=== PATIENT | female | born 1945 | race African-American/Black ===

== ENCOUNTER 2018-11-28 22:47 | Emergency (ER) | payer MEDICARE ==
--- NOTE | 2018-11-29 00:15 | ER Document Report ---
ED Medical Screen (RME) - General Chief Complaint: Flu Symptoms Stated Complaint: WEAKNESS,ACHES,HEADACHE Time Seen by Provider: 11/29/18 00:10 Mode of Arrival: Ambulatory Information source: Patient Notes: Patient presents complaining of generalized body aches cough and weakness for the past week. Patient denies any chest pain. Patient complains of lateral side soreness. Patient denies any nausea vomiting or urinary symptoms. Patient denies any significant medical history I have greeted and performed a rapid initial assessment of this patient. A comprehensive ED assessment and evaluation of the patient, analysis of test results and completion of the medical decision making process will be conducted by additional ED providers. TRAVEL OUTSIDE OF THE [place] IN LAST 30 DAYS: No - Related Data Allergies/Adverse Reactions: No Known Drug Allergies Allergy (Verified 11/28/18 22:50) Physical Exam - Vital signs Vitals: Temp Pulse Resp BP Pulse Ox 98.6 F 106 H 16 147/77 H 96 11/28/18 22:54 11/28/18 22:54 11/28/18 22:54 11/28/18 22:54 11/28/18 22:54 - Respiratory Respiratory status: No respiratory distress Breath sounds: Nonproductive cough Chest palpation: Normal Course - Vital Signs Vital signs: Temp Pulse Resp BP Pulse Ox 98.6 F 106 H 16 147/77 H 96 11/28/18 22:54 11/28/18 22:54 11/28/18 22:54 11/28/18 22:54 11/28/18 22:54
[2018-11-29 01:11] LABS: ABSOLUTE BASOPHILS # (AUTO) 0.1 10^3/uL (0.0-0.2); ABSOLUTE LYMPHOCYTES (AUTO) 0.6 10^3/uL (0.5-4.7); ABSOLUTE NEUT (AUTO) 8.7 10^3/uL (1.7-8.2); BASOPHILS % (AUTO) 0.6 % (0-2); HEMOGLOBIN 12.7 g/dL (12.0-15.5); LYMPHOCYTES % (AUTO) 5.9 % (13-45); MEAN CORPUSCULAR HEMOGLOBIN 32.3 pg (27.0-33.4); MEAN CORPUSCULAR HGB CONC 34.4 g/dL (32.0-36.0); MEAN CORPUSCULAR VOLUME 94 fl (80-97); MONOCYTES % (AUTO) 9.4 % (3-13); PLATELET COUNT 320 10^3/uL (150-450); RED BLOOD COUNT 3.93 10^6/uL (3.72-5.28); RED CELL DISTRIBUTION WIDTH 12.9 % (11.5-14.0); SEGMENTED NEUTROPHILS % (AUTO) 84.1 % (42-78); TOTAL CELLS COUNTED % (AUTO) 100 %; WHITE BLOOD COUNT 10.4 10^3/uL (4.0-10.5)
[2018-11-29 01:22] LABS: ALANINE AMINOTRANSFERASE 15 U/L (9-52); ALBUMIN 4.3 g/dL (3.5-5.0); ALKALINE PHOSPHATASE 86 U/L (38-126); ANION GAP 9 (5-19); ASPARTATE AMINO TRANSFERASE 20 U/L (14-36); BILIRUBIN,DIRECT 0.2 mg/dL (0.0-0.4); BILIRUBIN,TOTAL 1.6 mg/dL (0.2-1.3); BLOOD UREA NITROGEN 11 mg/dL (7-20); CALCIUM 9.6 mg/dL (8.4-10.2); CARBON DIOXIDE 31 mmol/L (22-30); CHLORIDE 99 mmol/L (98-107); GLUCOSE 97 mg/dL (75-110); POTASSIUM 4.3 mmol/L (3.6-5.0); TOTAL PROTEIN 8.1 g/dL (6.3-8.2)
--- NOTE | 2018-11-29 01:27 | RADIOLOGY REPORT (SQ) ---
EXAM DESCRIPTION: XR CHEST 2 VIEWS COMPLETED DATE/TME: 11/29/2018 00:11 CLINICAL HISTORY: 73 years, Female, cough COMPARISON: None. NUMBER OF VIEWS: Two TECHNIQUE: Two views of the chest LIMITATIONS: None. FINDINGS: Lungs demonstrate chronic interstitial opacities with masslike consolidations involving the right midlung which measures approximately 1.6 cm. There is also a masslike consolidation involving the left lung base which measures 2.8 cm. There is no pneumothorax or pleural effusion. The heart is normal in size. The bones are unremarkable. IMPRESSION: Masslike consolidations involving the right midlung and left lung base. Recommend further evaluation with a CT chest. copyright 2010 [employer]- All Rights Reserved
[2018-11-29 01:45] LABS: APPEARANCE,URINE CLEAR; BILIRUBIN,URINE NEGATIVE (NEGATIVE); COLOR,URINE YELLOW; GLUCOSE, URINE NEGATIVE (NEGATIVE); KETONES,URINE 80 mg/dL (NEGATIVE); LEUKOCYTE ESTERASE,URINE NEGATIVE (NEGATIVE); NITRITE,URINE NEGATIVE (NEGATIVE); PROTEIN,URINE NEGATIVE (NEGATIVE); URINE SPECIFIC GRAVITY 1.017; UROBILINOGEN,URINE NEGATIVE mg/dL (<2.0)
--- NOTE | 2018-11-29 03:44 | RADIOLOGY REPORT (SQ) ---
EXAM DESCRIPTION: CT ABDOMEN PELVIS WITHOUT IV CONTRAST, CT CHEST WITHOUT IV CONTRAST COMPLETED DATE/TME: 11/29/2018 02:09 (accession [id number]), 11/29/2018 02:07 (accession [id number]) CLINICAL HISTORY: 73 years, Female, L side pain, hematuria COMPARISON: None. TECHNIQUE: Axial CT images of the chest, abdomen and pelvis were obtained without contrast. Sagittal and coronal reformats were performed. DLP 364 Images stored on PACS. All CT scanners at this facility use dose modulation, iterative reconstruction, and/or weight based dosing when appropriate to reduce radiation dose to as low as reasonably achievable (ALARA). [facility]: Dose Right [facility]: CareDose [facility]: Dose Right [facility]: Teradose 4D [facility]: Apmetrix LIMITATIONS: None. FINDINGS: --Chest-- Thoracic aorta: Unremarkable. Heart: Unremarkable. Mediastinum: No pathologic sized middle mediastinal lymphadenopathy. Tracheobronchial tree: Unremarkable. Lungs: Lobar consolidation: Patchy consolidations involving the right upper lobe, right lower lobe, and left lower lobe. Consolidation involving the lingula likely represents atelectasis. Pleural effusion: Negative. Pneumothorax: Negative. Other: Negative. Bones: Unremarkable. --Abdomen-- Solid abdominal viscera: Liver: Unremarkable. Gallbladder: Unremarkable. Pancreas: Unremarkable. Spleen: Unremarkable. Adrenal glands: Unremarkable. Right kidney: No urolithiasis or hydronephrosis. Left kidney: No urolithiasis or hydronephrosis. Urinary bladder: Incompletely distended Abdominal aorta: Unremarkable. Peritoneal: Free fluid: Trace Free air: None. Other: No pathologic sized lymph nodes in the upper abdomen. Bowel: Stomach: Unremarkable. Small bowel: Unremarkable. Appendix: Unremarkable. Colon: Unremarkable. Rectum: Unremarkable. Bones: Unremarkable. IMPRESSION: Multifocal pneumonia. No evidence of urolithiasis or hydronephrosis. TECHNICAL DOCUMENTATION: Quality ID # 436: Final reports with documentation of one or more dose reduction techniques (e.g., Automated exposure control, adjustment of the mA and/or kV according to patient size, use of iterative reconstruction technique) copyright 2010 [employer]- All Rights Reserved
--- NOTE | 2018-11-29 03:44 | RADIOLOGY REPORT (SQ) ---
EXAM DESCRIPTION: CT ABDOMEN PELVIS WITHOUT IV CONTRAST, CT CHEST WITHOUT IV CONTRAST COMPLETED DATE/TME: 11/29/2018 02:09 (accession [id number]), 11/29/2018 02:07 (accession [id number]) CLINICAL HISTORY: 73 years, Female, L side pain, hematuria COMPARISON: None. TECHNIQUE: Axial CT images of the chest, abdomen and pelvis were obtained without contrast. Sagittal and coronal reformats were performed. DLP 364 Images stored on PACS. All CT scanners at this facility use dose modulation, iterative reconstruction, and/or weight based dosing when appropriate to reduce radiation dose to as low as reasonably achievable (ALARA). [facility]: Dose Right [facility]: CareDose [facility]: Dose Right [facility]: Teradose 4D [facility]: IPDIA LIMITATIONS: None. FINDINGS: --Chest-- Thoracic aorta: Unremarkable. Heart: Unremarkable. Mediastinum: No pathologic sized middle mediastinal lymphadenopathy. Tracheobronchial tree: Unremarkable. Lungs: Lobar consolidation: Patchy consolidations involving the right upper lobe, right lower lobe, and left lower lobe. Consolidation involving the lingula likely represents atelectasis. Pleural effusion: Negative. Pneumothorax: Negative. Other: Negative. Bones: Unremarkable. --Abdomen-- Solid abdominal viscera: Liver: Unremarkable. Gallbladder: Unremarkable. Pancreas: Unremarkable. Spleen: Unremarkable. Adrenal glands: Unremarkable. Right kidney: No urolithiasis or hydronephrosis. Left kidney: No urolithiasis or hydronephrosis. Urinary bladder: Incompletely distended Abdominal aorta: Unremarkable. Peritoneal: Free fluid: Trace Free air: None. Other: No pathologic sized lymph nodes in the upper abdomen. Bowel: Stomach: Unremarkable. Small bowel: Unremarkable. Appendix: Unremarkable. Colon: Unremarkable. Rectum: Unremarkable. Bones: Unremarkable. IMPRESSION: Multifocal pneumonia. No evidence of urolithiasis or hydronephrosis. TECHNICAL DOCUMENTATION: Quality ID # 436: Final reports with documentation of one or more dose reduction techniques (e.g., Automated exposure control, adjustment of the mA and/or kV according to patient size, use of iterative reconstruction technique) copyright 2010 [employer]- All Rights Reserved
--- NOTE | 2018-11-29 05:02 | ER Document Report ---
ED General - General Chief Complaint: Flu Symptoms Stated Complaint: WEAKNESS,ACHES,HEADACHE Time Seen by Provider: 11/29/18 00:10 Primary Care Provider: DIONNA RODRIGUES MD [ACTIVE STAFF] - Follow up tomorrow ANNABEL GUIDRY MD [ACTIVE STAFF] - Follow up tomorrow DEL FRAGA MD [ACTIVE STAFF] - Follow up tomorrow Mode of Arrival: Ambulatory Notes: Patient is a 73-year-old female who presents the emergency department with a chief complaint of flulike symptoms. She has had a cough for the past week. Patient and daughter who is at bedside denies any past medical history other th an pneumonia. Apparently she was started on one medication, which might have been azithromycin, which did not help her. She was then subsequently hospitalized. Daughter who is at bedside and other children over the phone have verified that the patient did better when she was on Levaquin. She is new to the area and has not seen a primary care provider in regards to this issue. TRAVEL OUTSIDE OF THE [place] IN LAST 30 DAYS: No - Related Data Allergies/Adverse Reactions: No Known Drug Allergies Allergy (Verified 11/28/18 22:50) Past Medical History - General Information source: Patient - Social History Smoking Status: Never Smoker Family History: Reviewed & Not Pertinent Review of Systems - Review of Systems Notes: REVIEW OF SYSTEMS: CONSTITUTIONAL : See HPI EENT: Denies eye, ear, throat, or mouth pain, discharge, or symptoms. Denies nasal or sinus congestion. CARDIOVASCULAR: Denies chest pain. RESPIRATORY: See HPI GASTROINTESTINAL: Denies nausea, vomiting, and diarrhea. Denies abdominal pain. Denies constipation. GENITOURINARY: Denies difficulty urinating, burning, blood in urine, urgency or frequency. MUSCULOSKELETAL: Denies neck and back pain. Denies joint pain or swelling. SKIN: Denies rash, itchiness, or lesions HEMATOLOGIC : Denies easy bruising or bleeding. LYMPHATIC: Denies swollen, painful, enlarged glands. NEUROLOGICAL: Denies no numbness or tingling denies weakness. Denies headache. Denies altered mental status. Denies alteration in speech. PSYCHIATRIC: Denies stress, anxiety, alteration in sleep patterns, or depression. All other systems reviewed and negative. Physical Exam - Vital signs Vitals: Temp Pulse Resp BP Pulse Ox 98.6 F 106 H 16 147/77 H 96 11/28/18 22:54 11/28/18 22:54 11/28/18 22:54 11/28/18 22:54 11/28/18 22:54 - Notes Notes: PHYSICAL EXAMINATION: GENERAL: Appears well, younger than stated age, healthy, well-nourished, no acute distress. HEAD: Normocephalic, atraumatic. EYES: PERRL, conjunctiva normal, all extraocular movements intact, sclera nonicteric ENT: Moist mucous membranes. NECK: Supple, no noticeable swelling, redness, rash. Normal range of motion. LUNGS: Equal breath sounds bilaterally and diminished to auscultation in bilateral bases. No wheezes rales or rhonchi. CARDIOVASCULAR: S1-S2, regular rate, regular rhythm. Radial pulses 2+, normal. ABDOMEN: Normoactive bowel sounds. Soft, nontender, no guarding, no rebound tenderness, and no masses palpated. EXTREMITIES: Normal strength and range of motion, no pitting or edema. No cyanosis. NEUROLOGICAL: Moves all extremities upon command. Strength 5/5 in all extremities. PSYCH: Normal mood, normal affect. SKIN: Warm, dry. No rash, lesions, ulcerations noted. Normal skin turgor. Course - Re-evaluation Re-evalutation: 11/29/18 05:[address] shows multifocal pneumonia. Her vital signs have been stable. According to the curb 65 with a score of 1 for her age, the patient is at low risk for worsening pneumonia. I had a lengthy conversation with the patient, her daughter at bedside, and her other children over the phone and discussed that the patient only scored a 1 on the curb 65 score. The patient's family was asking if there was any way that she can be admitted under observation overnight. I discussed all lab values and show that the patient did not meet any admission or observation criteria. The patient will be started on Levaquin. Follow-up precautions were given. Verbal discharge instructions were given to the patient and children. They verbalized understanding. They are stable for discharge. I have referred them to Johana Oseguera, and Stevie, as she is new to the area and needs to establish a primary care provider. - Vital Signs Vital signs: Temp Pulse Resp BP Pulse Ox 98.9 F 82 16 113/73 95 11/29/18 05:15 11/29/18 05:15 11/29/18 05:15 11/29/18 05:15 11/29/18 05:15 - Laboratory Result Diagrams: 11/29/18 00:46 11/29/18 00:46 Laboratory results interpreted by me: 11/29/18 11/29/18 11/29/18 00:46 00:46 00:46 Seg Neutrophils % 84.1 H Lymphocytes % 5.9 L Absolute Neutrophils 8.7 H Carbon Dioxide 31 H Total Bilirubin 1.6 H Urine Ketones 80 H Urine Blood MODERATE H Urine Ascorbic Acid 40 H - EKG Interpretation by Me Additional EKG results interpreted by me: 11/29/18 Sinus rhythm. Rate 95. OR 160; QRS 94; QT 348; QTc 438. No ST elevations or depressions noted. Discharge - Discharge Clinical Impression: Pneumonia Qualifiers: Pneumonia type: due to unspecified organism Laterality: unspecified laterality Lung location: unspecified part of lung Qualified Code(s): J18.9 - Pneumonia, unspecified organism Condition: Stable Disposition: HOME, SELF-CARE Additional Instructions: You have been diagnosed with a pneumonia. It is very important that you take all of your antibiotics until they are gone even if you are feeling better. Please return to the emergency department immediately if you began having worsening shortness of breath, become confused, have worsening pain, pass out, have persistent vomiting that prevents you from being able to drink fluids for more than 12 hours, or have any other symptoms that are worrisome to you. Please follow-up with a primary care doctor below in the next 1-2 days. Prescriptions: Levofloxacin [Levaquin 750 mg Tablet] 750 mg PO DAILY #5 tablet Referrals: DIONNA RODRIGUES MD [ACTIVE STAFF] - Follow up tomorrow DEL FRAGA MD [ACTIVE STAFF] - Follow up tomorrow ANNABEL GUIDRY MD [ACTIVE STAFF] - Follow up tomorrow
[2018-11-29] MEDS ORDERED: ACETAMINOPHEN 325 MG TABLET PO ONE (05:06)
[2018-11-29] MEDS ORDERED: LEVOFLOXACIN 750 MG TABLET PO ONE (05:06)
[2018-11-29 05:17] VITALS: BP 113/73
--- NOTE | 2018-11-29 08:27 | EKG REPORT ---
SEVERITY:- ABNORMAL ECG - SINUS RHYTHM PROBABLE LEFT ATRIAL ABNORMALITY PROBABLE INFERIOR INFARCT, OLD : Confirmed by: Saeed Reese MD 29-Nov-2018 08:26:38
== END 2018-11-29 06:02 | disposition home or self-care (01) ==
LOC: ER 22:47
DX: J18.9 Pneumonia, unspecified organism (principal); R53.1 Weakness; R51 Headache; R05 Cough
CPT/HCPCS: 93005; 99284; 36415; 83735; 85025; 80053; 81001; 84484; 71046; 71250; 74176; 93010; A9270 ×2

== ENCOUNTER → 2018-12-18 | Outpatient (CLI) | payer MEDICARE ==
--- NOTE | 2018-12-18 18:33 | RADIOLOGY REPORT (SQ) ---
EXAM DESCRIPTION: CHEST 2 VIEWS COMPLETED DATE/TIME: 12/18/2018 5:57 pm REASON FOR STUDY: J18.9 PNEUMONIA, UNSPECIFIED ORGANISM COMPARISON: 11/29/2018 EXAM PARAMETERS: NUMBER OF VIEWS: two views TECHNIQUE: Digital Frontal and Lateral radiographic views of the chest acquired. RADIATION DOSE: NA LIMITATIONS: none FINDINGS: LUNGS AND PLEURA: No opacities, masses or pneumothorax. No pleural effusion. MEDIASTINUM AND HILAR STRUCTURES: No masses or contour abnormalities. HEART AND VASCULAR STRUCTURES: Heart normal size. No evidence for failure. BONES: No acute findings. HARDWARE: None in the chest. OTHER: No other significant finding. IMPRESSION: NO ACUTE RADIOGRAPHIC FINDING IN THE CHEST. TECHNICAL DOCUMENTATION: JOB ID: [id number] [employer]- All Rights Reserved Reading location - IP/workstation name: [email or web address]
== END ==
LOC: RAD 17:11
PROVIDERS: ATTEND Family Medicine
DX: J18.9 Pneumonia, unspecified organism (principal)
CPT/HCPCS: 71046